=== PATIENT | female | born 1980 | race Caucasian/White ===

== ENCOUNTER → 2021-03-25 | Outpatient (REF) | payer OTHER ==
[2021-03-25 16:03] LABS: BLOOD UREA NITROGEN 12 MG/DL (7-18); CALCIUM LEVEL 8.5 MG/DL (8.5-10.1); CARBON DIOXIDE LEVEL 30 MEQ/L (21-32); CHLORIDE LEVEL 107 MEQ/L (98-107); CREATININE FOR GFR 0.76 MG/DL (0.55-1.30); GLOMERULAR FILTRATION RATE > 60.0 (>58); GLUCOSE, FASTING 73 MG/DL (70-100); POTASSIUM SERUM 4.3 MEQ/L (3.5-5.1); SODIUM LEVEL 142 MEQ/L (136-145)
== END ==
LOC: M SFHCADAM 11:29
PROVIDERS: ATTEND Physician Assistant
DX: Z01.818 Encounter for other preprocedural examination (principal)

== ENCOUNTER → 2022-06-28 | Outpatient (REF) | payer OTHER ==
[2022-06-28 14:04] LABS: BLOOD UREA NITROGEN 14 MG/DL (7-18); CALCIUM LEVEL 8.9 MG/DL (8.5-10.1); CARBON DIOXIDE LEVEL 29 MEQ/L (21-32); CHLORIDE LEVEL 106 MEQ/L (98-107); CREATININE FOR GFR 0.69 MG/DL (0.55-1.30); GLOMERULAR FILTRATION RATE > 60.0 (>58); GLUCOSE, FASTING 84 MG/DL (70-100); POTASSIUM SERUM 4.4 MEQ/L (3.5-5.1); SODIUM LEVEL 140 MEQ/L (136-145)
== END ==
LOC: M SFHCADAM 10:53
PROVIDERS: ATTEND Physician Assistant
DX: Z01.818 Encounter for other preprocedural examination (principal)

== ENCOUNTER → 2023-04-20 | Outpatient (REF) | payer OTHER | LOC: M SFHCADAM 13:09 | PROVIDERS: ATTEND Physician Assistant | DX: Z12.4 Encounter for screening for malignant neoplasm of cervix (principal); Z01.419 Encounter for gynecological examination (general) (routine) without abnormal findings; Z77.9 Other contact with and (suspected) exposures hazardous to health ==

== ENCOUNTER → 2024-05-01 | Outpatient (REF) | payer OTHER ==
[2024-05-01 13:04] LABS: HEMATOCRIT 39.1 % (36.0-47.0); HEMOGLOBIN 13.1 g/dl (12.0-15.5); MEAN CORPUSCULAR HEMOGLOBIN 31.2 pg (27.0-33.0); MEAN CORPUSCULAR HGB CONC 33.5 g/dl (32.0-36.5); MEAN CORPUSCULAR VOLUME 93.1 fl (80.0-96.0); PLATELET COUNT, AUTOMATED 209 10^3/uL (150-450); WHITE BLOOD COUNT 4.9 10^3/uL (4.0-10.0)
[2024-05-01 13:22] LABS: HEMOGLOBIN A1c 4.8 % (4.0-6.0)
[2024-05-01 13:32] LABS: THYROID STIMULATING HORMONE 0.817 uIU/ML (0.55-4.78)
[2024-05-01 13:33] LABS: FREE T4 1.04 NG/DL (0.89-1.76)
[2024-05-01 13:34] LABS: CHOLESTEROL RISK RATIO 2.22 (<5); HDL CHOLESTEROL 73.6 MG/DL (>40); LDL CHOLESTEROL 82.4 MG/DL (<100); NON-HDL-C 90.4 MG/DL
== END ==
LOC: M SFHCADAM 08:12
PROVIDERS: ATTEND Physician Assistant
DX: N92.6 Irregular menstruation, unspecified (principal); R63.5 Abnormal weight gain; R87.610 Atypical squamous cells of undetermined significance on cytologic smear of cervix (ASC-US); Z13.220 Encounter for screening for lipoid disorders; Z13.1 Encounter for screening for diabetes mellitus

== ENCOUNTER → 2025-06-18 | Outpatient (REF) | payer OTHER ==
[2025-06-20 13:47] LABS: HPV APTIMA Not Detected (Not Detected)
== END ==
LOC: M LABDRWAD 13:21
PROVIDERS: ATTEND Physician Assistant
DX: Z12.4 Encounter for screening for malignant neoplasm of cervix (principal)
CPT/HCPCS: 87624; G0123

== ENCOUNTER → 2025-06-23 | Outpatient (REF) | payer OTHER ==
[2025-06-23 17:31] LABS: BASO # 0.0 10^3/uL (0.0-0.2); BASO % 0.4 % (0.0-1.0); EOS # 0.1 10^3/uL (0.0-0.5); EOS % 1.0 % (0.0-3.0); LYMPH # 2.0 10^3/uL (1.5-5.0); LYMPH % 24.2 % (24.0-44.0); MONO # 0.7 10^3/uL (0.0-0.8); MONO % 8.1 % (2.0-8.0); NEUTROPHILS # 5.5 10^3/uL (1.5-8.5); NEUTROPHILS % 66.2 % (36.0-66.0); PLATELET COUNT, AUTOMATED 246 10^3/uL (150-450)
[2025-06-23 17:43] LABS: VITAMIN B12 LEVEL 386.0 PG/ML (211-911)
[2025-06-23 17:44] LABS: ALT/SGPT 21.0 U/L (7.0-40); AST/SGOT 20.0 U/L (<34); CALCIUM LEVEL 8.7 MG/DL (8.5-10.1); CARBON DIOXIDE LEVEL 28.0 MMOL/L (20-31); CHLORIDE LEVEL 103.0 MMOL/L (98-107); CREATININE FOR GFR 0.84 MG/DL (0.55-1.30); FREE T4 1.15 NG/DL (0.89-1.76); GLOMERULAR FILTRATION RATE 87.3 (>58); IRON (FE) 32.0 UG/DL (50-170); PERCENT SATURATION 9.0 % (13.2-45.0); POTASSIUM SERUM 4.0 MMOL/L (3.5-5.1); SODIUM LEVEL 142.0 MMOL/L (136-145)
[2025-06-23 17:52] LABS: ESTIMATED AVERAGE GLUCOSE 100.0 MG/DL (60-110)
== END ==
LOC: M SFHCADAM 15:06
PROVIDERS: ATTEND Physician Assistant
DX: Z00.00 Encounter for general adult medical examination without abnormal findings (principal); N92.6 Irregular menstruation, unspecified; W57.XXXS Bitten or stung by nonvenomous insect and other nonvenomous arthropods, sequela; R53.82 Chronic fatigue, unspecified; R63.5 Abnormal weight gain

== ENCOUNTER → 2025-07-18 | Outpatient (CLI) | payer OTHER | LOC: M WHC 12:48 | PROVIDERS: ATTEND Physician Assistant | DX: N92.6 Irregular menstruation, unspecified (principal); N88.8 Other specified noninflammatory disorders of cervix uteri; N83.02 Follicular cyst of left ovary ==

== ENCOUNTER → 2025-09-08 | Outpatient (REF) | payer OTHER ==
[2025-09-08 19:10] LABS: ESTRADIOL 226.0 PG/ML; LUTEINIZING HORMONE 15.8 mIU/ML
== END ==
LOC: M PLALAB 18:04
PROVIDERS: ATTEND Student in an Organized Health Care Education/Training Program
DX: N95.1 Menopausal and female climacteric states (principal)